=== PATIENT | female | born 1990 | race Caucasian/White ===

== ENCOUNTER 2016-09-03 18:01 | Emergency (ER) | payer OTHER ==
--- NOTE | 2016-09-03 18:42 | ERPHSYRPT ---
- History of Present Illness Time Seen by Provider: 09/03/16 18:36 Source: patient Exam Limitations: no limitations Patient Subjective Stated Complaint: tooth broke a few days ago and now having pain and swelling to left side of face. has drainage from tooth. Triage Nursing Assessment: ambulated to room per self. skin w/d, color normal. left lower jaw noticably swollen. patient tearful at times, holding left jaw Physician History: Pt. with longstanding teeth problems. Broke upper tooth off chewing Cheese-tos yesterday. Noticed increase L jaw swelling/pain that did not improve with Ibuprofen. Denies any fever, chills, cough but noted rhinorrhea/nasal congestion. Timing/Duration: yesterday Severity: moderate Associated Symptoms: denies symptoms Allergies/Adverse Reactions: cefaclor [From [facility]] Allergy (Verified 09/03/16 18:11) Penicillins Allergy (Verified 09/03/16 18:11) Hx Tetanus, Diphtheria Vaccination/Date Given: Yes (2015) Hx Influenza Vaccination/Date Given: Yes Hx Pneumococcal Vaccination/Date Given: No Immunizations Up to Date: No - Review of Systems Constitutional: No Fever, No Chills Eyes: No Symptoms Ears, Nose, & Throat: No Symptoms, Mouth Pain, Loose Teeth Respiratory: No Cough, No Dyspnea Cardiac: No Chest Pain, No Edema, No Syncope Abdominal/Gastrointestinal: No Abdominal Pain, No Nausea, No Vomiting, No Diarrhea Genitourinary Symptoms: No Dysuria Musculoskeletal: No Symptoms, No Back Pain, No Neck Pain Skin: No Rash Neurological: No Dizziness, No Focal Weakness, No Sensory Changes Psychological: No Symptoms Endocrine: No Symptoms Hematologic/Lymphatic: No Symptoms Immunological/Allergic: No Symptoms All Other Systems: Reviewed and Negative - Past Medical History Pertinent Past Medical History: Yes Psycho-Social History: Depression Other Medical History: Multiple Dental Caries - Past Surgical History Past Surgical History: No - Social History Smoking Status: Current every day smoker How long have you smoked: 13 Exposure to second hand smoke: No Drug Use: marijuana Patient Lives Alone: No - Female History Hx Last Menstrual Period: 08/17/16 - Nursing Vital Signs Nursing Vital Signs: Initial Vital Signs Temperature 98.5 F Temperature Source Oral Pulse Rate 80 Respiratory Rate 16 Blood Pressure [Right Arm] 136/75 Pain Intensity 10 - Physical Exam General Appearance: no apparent distress, alert Eye Exam: PERRL/EOMI, eyes nml inspection Ears, Nose, Throat Exam: normal ENT inspection, TMs normal, pharynx normal, moist mucous membranes, other (Multiple dental caries, no obvious gum swelling or discharge. Some tenderness to palp to L upper gum area.) Neck Exam: normal inspection, non-tender, supple, full range of motion Respiratory Exam: normal breath sounds, lungs clear, No respiratory distress Cardiovascular Exam: regular rate/rhythm, normal heart sounds, normal peripheral pulses Gastrointestinal/Abdomen Exam: soft, normal bowel sounds, No tenderness, No mass Back Exam: normal inspection, normal range of motion, No CVA tenderness, No vertebral tenderness Extremity Exam: normal inspection, normal range of motion, pelvis stable Neurologic Exam: alert, oriented x 3, cooperative, normal mood/affect, nml cerebellar function, nml station & gait, sensation nml, No motor deficits Skin Exam: normal color, warm, dry, No rash Lymphatic Exam: No adenopathy SpO2: 96 Oxygen Delivery: Room Air - Progress Progress: unchanged Counseled pt/family regarding: diagnosis - Departure Time of Disposition: 18:45 Departure Disposition: Home Clinical Impression: Dental caries Condition: Stable Critical Care Time: No Instructions: Tooth Decay Additional Instructions: Motrin 800mg every 8hrs with food for fever/pain. RX: [place]/Clindamycin Follow up with dentist in 2-4 days Return for worse pain, swelling, fever or any problems Prescriptions: Hydrocodone Bit/Acetaminophen [[place] 5-325 Tablet] 1 each PO Q6H PRN PRN #10 tablet PRN Reason: Pain Clindamycin HCl 300 mg PO QID #40 capsule
[2016-09-03 18:55] VITALS: BP 121/68; PULSE 76; O2SAT 97
== END 2016-09-03 18:53 | disposition home or self-care (01) ==
LOC: ED 18:01
DX: K02.9 Dental caries, unspecified (principal)
CPT/HCPCS: 99282